=== PATIENT | female | born 1950 | race Caucasian/White ===

== ENCOUNTER → 2023-10-14 | Outpatient (CLI) | payer MEDICARE, OTHER, SELFPAY ==
--- NOTE | 2023-10-14 07:24 | CT_ITS ---
CT LEFT LOWER EXTREMITY WITH 3-D IMAGING CLINICAL INDICATION: PRE OP TECHNIQUE: Axial CT images of the left lower extremity (including left hip, left knee, and left ankle) was performed without IV contrast material. Coronal and sagittal reformats were provided. RADIATION DOSAGE (If Supplied By Facility): CTDIvol = ( 27.02 ) mGy, DLP = ( 1716.10 ) mGycm COMPARISON: No relevant prior comparison study available. FINDINGS: Bones: Normal left hip. There is severe degenerative arthrosis of the left knee joint with severe joint space narrowing, marginal osteophyte formation, subchondral sclerosis/cyst formation, and small foci of intra-articular gas. There is mild to moderate degenerative arthrosis of the patellofemoral and lateral femorotibial compartments of the left knee with marginal osteophyte formation. There is a plantar calcaneal spur. Otherwise normal left ankle. Osseous structures are intact without evidence of fracture or dislocation. No lytic or blastic osseous masses. Soft Tissues: There is a moderate left knee joint effusion. The deep soft tissue structures are unremarkable. The superficial soft tissues are unremarkable without evidence of edema, hematoma, or foreign body. CT/Extremity Lower without Contra IMPRESSION: Tricompartment degenerative arthrosis of the left knee, most severe in the medial femorotibial compartment. Moderate left knee joint effusion. Electronically Signed: Esequiel Lewis MD at 10:05 EDT ,
[2023-10-14 09:30] LABS: AST(SGOT) 30 U/L (15-37); Alanine Aminotransfer ALT/SGPT 27 U/L (13-56); Albumin, Serum 3.7 g/dL (3.2-5.0); Alkaline Phosphatase 115 U/L (45-117); Anion Gap 5 (5-15); BUN 21 mg/dL (7-18); BUN/Creat Ratio 19.6 RATIO (10-20); Calcium,Total 9.5 mg/dL (8.5-10.1); Chloride 108 mmol/L (98-107); Cholesterol 162 mg/dL (200); Creatinine, Serum 1.07 mg/dL (0.55-1.02); EST Glomerular Filtration Rate 54 mL/min (>60); Est Glom Filt Rate - Afr Amer 65 mL/min (>60); Globulin 3.7 g/dL (2.2-4.2); Glucose 99 mg/dL (74-106); High Density Lipoprotein 61 mg/dL; Protein, Total 7.4 g/dL (6.4-8.2); Sodium Level 140 mmol/L (136-145); Triglycerides 94 mg/dL; Very Low Density Lipoprotein 19 mg/dL (5-40)
== END | disposition home or self-care (01) ==
PROVIDERS: PCP Family Medicine; Referring Provider Specialist; Visit Provider Specialist
DX: M17.12 Unilateral primary osteoarthritis, left knee (principal); I10 Essential (primary) hypertension; E78.2 Mixed hyperlipidemia; I25.10 Atherosclerotic heart disease of native coronary artery without angina pectoris; M25.562 Pain in left knee
CPT/HCPCS: 36415; 73700; 80053; 80061

== ENCOUNTER 2023-11-10 07:06 | Observation (INO) | payer MEDICARE, OTHER, SELFPAY ==
--- NOTE | 2023-10-14 07:24 | EKG12_ITS ---
Test Reason : PRE-OP Blood Pressure : / mmHG Vent. Rate : 062 BPM Atrial Rate : 062 BPM P-R Int : 176 ms QRS Dur : 088 ms QT Int : 420 ms P-R-T Axes : 053 009 017 degrees QTc Int : 426 ms Normal sinus rhythm Normal ECG Confirmed by HUMAIRA JACK, KUSUM ([id number]), sports editor JOSE PALMA ([id number]) on 10/15/2023 6:40:41 AM Referred By: Dajuan Garcia Confirmed By:KUSUM GERARDO MD
[2023-10-14 08:33] LABS: Absolute Lymphocyte Count 1.76 X10^3/uL (0.83-4.51); Absolute Neutrophil Count 3.3 X10^3/uL (2.0-7.7); Basophil# 0.06 X10^3/uL; Basophil% 1.1 % (0-1); Eosinophil# 0.15 X10^3/uL; Eosinophils% 2.6 % (0-5); Hematocrit 40.6 % (37-47); Hemoglobin 13.2 g/dL (12.0-15.0); Lymphocyte # 1.76 X10^3/ul (0.83-4.51); Lymphocyte % 30.9 % (19-41); Mean Corp Hgb Conc 32.5 g/dL (32-36); Mean Corpuscular Hgb 29.1 pg (27.0-32.0); Mean Corpuscular Volume 89.6 fL (81-99); Mean Platelet Vol. 11.8 fl (6.2-12.0); Monocyte# 0.44 X10^3/uL; Monocyte% 7.7 % (0-10); NRBC Flagged by Analyzer 0 % (0-5); Neutrophil # 3.25 X10^3/uL (2.7-7.7); Neutrophil % 57.2 % (47-70); Platelet Count 160 K/mm3 (150-450); RBC Distribution Width CV 13.5 % (11.6-14.6); RBC Distribution Width SD 44.5 fl (35.1-43.9); Red Blood Count 4.53 M/mm3 (4.2-5.4); White Blood Count 5.7 K/mm3 (4.4-11.0)
[2023-10-14 09:20] LABS: Albumin, Serum 3.7 g/dL (3.2-5.0)
[2023-10-14 09:24] LABS: Magnesium 2.1 mg/dL (1.6-2.6)
--- NOTE | 2023-11-03 12:48 | PCM.HP.BLA ---
History and Physical History and Physical Patient Name: Ulysses Willis : 1950From:? YENNI DELVALLE PA-C DATE OF PRE-OPERATIVE EXAM: 11/03/2023 DATE OF SURGERY:? 11/10/2023 SCHEDULED PROCEDURE:? Robotic-assisted left total knee arthroplasty and right knee corticosteroid injection HISTORY OF PRESENT ILLNESS: Preoperative history and physical exam was performed on November 03, 2023.? This is a 73-year-old female who is had ongoing pain for 2 years.? She is also complaining of right knee pain.? The pain has been progressively been getting worse.? Patient's pain has been intermittent, dull, aching and sore.? Pain is increased with going up and down stairs and walking.? Patient states the pain does not awaken her at night.? Pain is located over the anterior knee.? She has had intermittent swelling.? Her pain can reach 6/10 with activities.? Patient does have start up pain.? She does feel the knee pain is significantly affecting her activities of daily living.? She has attempted conservative measures including rest, elevation, ice, heat with minimal improvement.? She has tried previous corticosteroid injection and aquatic therapy.? She states those treatments were temporarily helpful.? She has tried oral medications including Tylenol.? She has been through physical therapy and home exercises.? She denies past history of surgery on her left knee.? She is also complaining of continued right knee pain.? She has obtain surgical clearance from the primary care provider Dr. Hernandez.? She has medical history pertinent for hypertension, coronary artery disease, gastroesophageal reflux disease, and hyperlipidemia.? She does not have documented chronic kidney disease but preoperative lab work did reveal elevated kidney function and decreased GFR.? She has been on meloxicam for approximately 2 years.? She denies any recent chest pain, shortness of breath, fevers chills or recent infections.? No past history of DVT or pulmonary embolism.? After failing conservative measures and discussing all treatment options was Dr. Dajuan Garcia, the patient does wish to proceed with a left total knee arthroplasty and right knee corticosteroid injection. REVIEW OF SYSTEMS: Review Of Systems: Constitutional: Denies change in appetite, fever and weight change. Cardiovasular: Denies chest pain, heart murmur and irregular heartbeat. Respiratory: Denies cough, pneumonia, shortness of breath, tuberculosis and wheezing. Gastrointestinal: Denies constipation, diarrhea, heartburn, nausea, rectal itching, bloody stools and vomiting. Musculoskeletal: Denies leg swelling, pain, trouble walking and weakness. Skin: Denies Raynaud's, history of shingles and tattoo. Neurological: Denies ambulatory dysfunction, dizziness, numbness/tingling and tremor. Psychiatric: Denies anxiety, insomnia and stress. Hematologic/Lymphatic: Denies anemia, bleeding/bruising tendency and past transfusion. Reviewed, no changes. PAST MEDICAL HISTORY: Advance Care Plan: Other Directive, POA Effective Date: 11/27/2021 Other Directive, LIVING WILL Effective Date: 11/27/2021 Past Medical History: Medical Problems: Acid Reflux, High Blood Pressure, Hypercholesterolemia, Coronary Artery Disease (CAD), elevated kidney function Accidents: None Surgical Hx: Tonsillectomy - 1956 / [place] Anesthesia Complications: None Assistive Devices: Glasses Reviewed and updated. SOCIAL HISTORY: Social History: Marital: .Occupation: Retired.Work Status: Retired.Hand Dominance: Right-handed. Personal Habits:? Cigarette Use: Never Smoked Cigarettes.Smokeless Tobacco: Never Used Smokeless Tobacco.E-Cigarette Use: Never used.Alcohol: Occasionally.Drug Use: Denies Use.Enjoy Exercising: Never Exercises. Reviewed, no changes. VITALS: Ht: 67.25 Wt: 224lb Wt k.606 BMI: 34.8 BP: 120/64 Pulse: 54 T: 97.6 T: 36.4C Pain Level: 6 O2SatR: 97 ALLERGIES: No Known Drug Allergy MEDICATIONS: Meloxicam 15 mg 1 by mouth every day, Aspirin Adult Low Dose 81 mg by mouth 1 a day, Hydrochlorothiazide 12.5 mg 1 by mouth every day, Crestor 10 mg 1x/day, Calcium + D 500-1000-40 MG-Unt-mcg 2 by mouth every day, Glucosamine & Chondroiti N/Vitamin D Maximum Strength 2691-0426-371 MG-MG-Unit, Prilosec OTC 20 mg PRE-OP EXAM: General appearance:NORMAL? Other: Eyes: Conjunctivae and lids: NORMAL? Pupils: ERR Ears, Nose, Mouth, and Throat: NORMAL? Other: Inspection of lips, teeth and gums: NORMAL?? Other: Neck: Examination of neck: no masses noted. Respiratory: Assessment of respiratory effort: NORMAL?? Other: ? Auscultation of lungs: clear to auscultation no wheezes, rhonchi or rales. Cardiovascular:? Auscultation of heart: regular rate and rhythm, no murmurs, gallops or rubs. PHYSICAL EXAMINATION: On clinical exam patient does walk with an antalgic gait.? The left knee has moderate effusion.? No erythema.? She has varus alignment which is partially correctable.? Range of motion: Lacks 10 full extension to 110 flexion.? Stable to varus/valgus stress test, stable to anterior/posterior drawer exam.? Patient's right knee has mild effusion with tenderness to palpation along the medial joint line.? There is varus alignment which is correctable on exam.? Range of motion 0 extension 120 flexion.? Stable to varus/valgus stress test, stable to anterior/posterior drawer exam. IMAGING STUDIES: Previous x-rays of left knee reveal varus alignment with medial joint space narrowing, subchondral sclerosis, osteophyte formation consistent with severe stage IV bone on bone erosive tricompartment osteoarthritis.? Patient's right knee reveals varus alignment with medial joint space narrowing, subchondral sclerosis, osteophyte formation consistent with moderate to severe stage III Dimitris for right knee osteoarthritis with bony erosion in the patellofemoral compartment. IMPRESSION: 1.? Severe left knee osteoarthritis 2.? Moderate to severe right knee osteoarthritis 3.? Hypertension 4.? Coronary artery disease 5.? Gastroesophageal reflux disease 6.? Hyperlipidemia 7.? Elevated kidney function and decreased GFR without diagnosis of chronic kidney disease 8.? Obesity with BMI 34.8 PLAN: Dr. Dajuan Garcia did discuss and review with the patient all treatment options including surgical versus nonsurgical options.? Patient does wish to proceed with the above-stated procedure.? Potential risks, benefits, and complications of the procedure were discussed in detail including but not limited to , infection, nerve and blood vessel damage, persistent pain, numbness, tingling, paresthesias, blood clot, pulmonary embolism, and requirement for possible further surgery.? The patient expressed full understanding and has no further questions for the doctor.? Patient does agree to proceed with the above-stated procedure and has signed the surgery consent form. POST-OP MEDICATION PLAN: Pain Medications: Postoperative pain regimen will be initiated by Dr. Dajuan Garcia in the hospital.? Due to the elevated kidney function and decreased GFR we are going to avoid nonsteroidal anti-inflammatories.? Patient has had appropriate lab work and clearance.? We are reaching out to the primary care provider with regards to her kidney function.? She does have a walker that she will bring to the hospital. DVT Prophylaxis:? Aspirin 81 mg twice daily for 4 weeks postoperatively.? Denies past history of DVT or pulmonary embolism This dictation was created using voice recognition software. Phonetic and/or grammatical errors may exist. ___? I have re-examined the patient.? There are no clinical changes since date of exam. ___? See progress notes for changes. ___? Dictated on admission Date: ? Time: Signature:
[2023-11-10] VITALS (13 sets, daily range): BP systolic 94–146; BP diastolic 58–95; PULSE 73–88; RESP 16–18; TEMP 36.4–36.8; O2SAT 95–100; BMI 34.7
[2023-11-10] MEDS: Acetaminophen 500 MG Tablet 1000 MG PO ×2 (07:30→22:25)
[2023-11-10] MEDS: JPS (Morphine 10mg/ml) OPERA.SITE (07:30)
[2023-11-10] MEDS: Magnesium 1 GM over 15 mins IV (07:30)
[2023-11-10] MEDS: Lactated Ringers 1,000 ML 999 ML IV ×2 (07:30→12:09)
[2023-11-10] MEDS: Gabapentin 600 MG Tablet PO (07:31)
--- NOTE | 2023-11-10 09:15 | KNEE_PTH ---
PATIENT: BRITTNEY SIMONS LOC: MS3 U#:[id number] AGE/SX: 73/F ROOM: [facility] [place] RE11/10/[address]: Dr. Dajuan Garcia MD : 1950 BED: 1 DIS: 11/11/2023 SPEC #: [id number] RECD: 11/10/23 12:38 STATUS: CATALINA BLAIR #: [id number] AYANA: 11/10/23 09:[address]: Dajuan Garcia DEPT: SURGICAL PATHOLOGY RECD BY: Francisco Agudelo ENTERED: 11/10/23 12:54 SP TYPE: TOTAL KNEE OTHR DR: Dr. Payam Hernandez MD Tissues: Knee, NOS Procedures: Decalcification bone/plaque Surgery Specimen Level IV HEADER OPERATION: ERAS, left total knee replacement robotic arm assist PRE-OP DIAGNOSIS: Severe left knee osteoarthritis, moderate to severe right knee osteoarthritis, hypertension, elevated kidney function and decreased GFR TISSUE SUBMITTED: Left knee bone and tissue MICROSCOPIC DIAGNOSIS Bone and soft tissue, left knee, total knee replacement/resection: Pieces of bone with degenerative osteoarthritic changes. Fibroadipose tissue, fibroconnective tissue and reactive synovial tissue. SULMA: 11/15/2023 MICROSCOPIC DESCRIPTION Slides are reviewed. GROSS DESCRIPTION Received is one container designated bone and soft tissue left knee. The specimen consists of multiple fragments of valenzuela-yellow bone measuring in aggregate 12.0 x 10.0 x 4.0 cm. Also in the specimen container are multiple fragments of yellow-white soft tissue attached to the pieces of bone measuring in aggregate 4.0 x 3.5 x 1.0 cm. A number of bony fragments contain articular surfaces consistent with tibial plateau and femoral condyle and displaying prominent osteophyte formation, eburnation and bone erosion. Family Practice Doctor sections are submitted in two cassettes as follows: 1 - soft tissue, 2 - bone after decalcification. / SULMA/ 11/10/23 TC:5 CPT: 14232, 12245
[2023-11-10 09:31] LABS: Bedside Glucose 79 mg/dL (74-106)
[2023-11-10] MEDS: Cefazolin 2 GM in 0.9% Normal Saline (100mL Bag) 100 ML IV (09:49)
[2023-11-10] MEDS: TXA 1000mg in NS100 100ml (IVPB at Closure) 660 MG IV (10:01)
[2023-11-10] MEDS: Triamcinolone Acetonide 40 MG/ML Vial (10:27)
[2023-11-10] MEDS: Bupivacaine 0.5% PF 10 ML VIAL (10:28)
[2023-11-10] MEDS: TXA 1000mg in NS100 100ml (IVPB at Incision) 660 MG IV (10:53)
--- NOTE | 2023-11-10 11:02 | PCM.OPRPT ---
Report of Operation Date of Procedure: 11/10/23 Pre-Operative Diagnosis: Bilateral knee primary osteoarthritis Post-Operative Diagnosis: Bilateral knee primary osteoarthritis Surgery/Procedure Performed:: Left knee minimally invasive robotic assisted total knee replacement Right knee corticosteroid injection intra-articular Description of Surgical Findings:: Stable knee with good patella tracking Surgeon: Dajuan Garcia feed project engineer: Torrey Pennington Type of Anesthesia: Spinal Anesthesiologist: Bandar Reyes Special Medications: 2 g Ancef, 1 g TXA at incision, 1 g TXA closure, 10 mg Decadron, joint cocktail (5 mg Duramorph, 30 mL of 0.5% Ropivicaine, 1000 units of epinephrine, 30 mg of Toradol) Specimen's removed: Bony cuts Estimated Blood Loss (mL): 75 Fluids Replaced: 1400 mL crystalloid Description of Procedure: Implants used: 1. Meghna size 5 triathlon cruciate retaining distal femoral press-fit component 2. [place] size 5 press-fit tritanium tibial baseplate 3. Meghna X3 11 mm polyethylene 4. Meghna X3 35 and asymmetric patella Brief history operative indications: 73-year-old female with history of bilateral knee osteoarthritis with radiographic findings with loss of joint space, osteophyte formation and subchondral sclerosis. Failed conservative measures as mentioned in the H&P. Discussion of total knee arthroplasty as well as risk and benefits were discussed the patient including but not limited to blood loss, DVTs, PEs, neurovascular damage, general risk of anesthesia including loss of life, and stiffness or instability were discussed with patient. Patient demonstrated understanding and was able to sign informed consent. Additionally, we elected to proceed with a corticosteroid injection in the right knee Procedure: On the date of procedure patient's left lower extremity was marked in the preoperative area for total joint replacement. The right knee was marked for injection. The patient was then taken back to the operating room where the patient was placed on the table in the supine position. All bony prominences were identified a well-padded. Anesthesia assumed control of the C-spine and airway and remained controlled throughout the remainder of the procedure. At this time our attention was directed to the right knee where the suprapatellar lateral portal was palpated. For alcohol swabs were used to clean the skin. 25-gauge needle was then used to inject 2 cc of Kenalog and 4 cc of 0.5% plain Marcaine. Patient tolerated the procedure well and Band-Aid was placed after needle was withdrawn. A tourniquet was placed on the left upper thigh and the leg was prepped in a sterile fashion. The surgeon then scrubbed at this time .Upon reentering the room left lower extremity was draped in a standard orthopedic fashion. A timeout was then called and everyone agreed upon the side, the site, the procedure to be performed, patient's identity and antibiotics given. Esmarch bandage was used to exsanguinate the extremity and the tourniquet was placed up to 250 mmHg with the knee in flexion. A midline skin incision was made and sharp dissection was taken down through skin subcutaneous tissue and fat. The standard medial parapatellar incision was made and the patella was subluxed laterally. An Appropriate deep MCL release was done and the fat pad was resected. Our attention was then directed to the patella. The patella was everted and a flat resection was made. The knee was then flexed up in 2 femoral pins were placed inside the incision and 2 tibial pins were placed outside the incision in the medial tibia bicortically. Once this was completed the 2 checkpoints in the femur and tibia were placed. Knee was then flexed up and the bony landmarks were registered. Once this was completed knee was taken through range of motion and manually stressed allowing us to a plan for an appropriate tibial cut. The robotic arm was brought into the field sterilely and checkpoint and saw were registered. Based on the patient's deformity the tibial cut was made []. At this time the tensioner was then placed in the joint and ligament tension was checked at 90 degrees and full extension. Based on the patient's ligamentous tension appropriate adjustments were made to the operative plan and ligament releases were done. Once we were happy with our operative plan with balanced flexion and extension gaps our attention was directed to the femur. The robot was brought into the field sterilely and registered. Posterior condylar cuts, anterior chamfer cuts and anterior cuts were appropriately made for a size [] femur. When these were completed the saws were switched out in the distal femoral and posterior chamfer cuts were made. Protecting the soft tissue throughout this time. A size [] tibial base plate was selected. the knee was flexed to 90 degrees and the soft tissues and posterior osteophytes were removed from the joint. 40 cc of the periarticular injection was injected into the posterior medial corner of the joint. The appropriate trials were then placed on the femur and tibia. A trial polyethylene was trialed to ensure proper balancing and stability of the knee. The appropriate tibial internal rotation was then marked with a bovie. Our attention was then directed to the patella. The lug holes were drilled and the patella trial was placed. Patellar tracking was checked and deemed appropriate. Once we were happy lug holes were drilled for the femur and trial components were removed. the tibia was subluxed and pinned into place and the keel was punched and drilled appropriately. Final components were verified and opened, and cement was mixed in a vacuum. [employer] Simplex cement was used. The wound was copiously irrigated with normal saline. When the cement was ready the components were [] into place starting with the tibia, femur and finally cementing the patella. The trial poly component was placed and the knee was placed in full extension. All excess cement was removed in the process. Once the cement had cured the tracking, alignment and balance were verified and a size [] polyethylene component was placed. Once the final components were placed a 3-minute dilute Betadine lavage was performed followed by an Irrisept lavage was performed and the wound was copiously irrigated with normal saline solution and the periarticular injection was given. The wound was closed in a layer enciso fashion using #1 vicryl interrupted sutures for the arthrotomy, 2-0 interrupted Vicryl suture for the subcuticular layer and daya for final skin closure. A sterile compressive dressing was then placed. The patient was then awakened from anesthesia, transferred to the [facility] and transferred to the PACU for recovery. Post op plan DVT ppx: ASA 81mg BID, thigh high compression stockings Follow up: in office in 2 weeks for wound check PT: to start POD #0 at hospital, outpatient PT should be arranged. My physician ophthalmic surgical assistant was a vital part of this case. He was important in appropriate retraction during the case, and protection of soft tissues during bony cuts. His intimate knowledge of the case and my steps aided in safe and expedient completion of the procedure as well as appropriate position of the leg during the case. He was also vital in assisting with closure under my direct supervision. Due to the complexity of this case robotic arm was used to assist in the surgery to improve accuracy and clinical outcomes. Complications No intraoperative complications Admit VTE Documentation VTE Present on Admission: No VTE Mechan Device Prophylaxis: SCD's and Thigh High CAM Kimble VTE Pharm Prophylaxis ordered?: Yes
--- NOTE | 2023-11-10 11:55 | RAD_ITS ---
STUDY: X-RAY - LEFT KNEE REASON FOR EXAM: Female, 73 years old. post op -- AP and Lateral xray of operative knee in PACU TECHNIQUE: 2 view(s) of the knee. COMPARISON: None. FINDINGS: Normal visualized distal femur. Normal visualized proximal tibia and fibula. Normal proximal tibiofibular articulation. Patient is status post total knee replacement. There is good alignment. Postoperative soft tissue changes. RAD/Knee 1 or 2 Views IMPRESSION: Status post total knee replacement. There is good alignment. Postoperative soft tissue changes. Electronically Signed: Tl Ford MD at 13:02 EDT ,
--- NOTE | 2023-11-10 16:24 | CON.PCM.HO_ITS ---
Assessment & Plan Assessment/Plan (1) Arthritis of left knee: PLAN: Plan #Left knee osteoarthritis * s/p left knee minimally invasive robotic assisted total knee replacement. * today is POD 0 * management as per primary service orthopedics. * PO tylenol, PO oxycodone and IV morphine prn for pain * fall precautions * incentive spirometry * #Hypertension: on HCTZ. IV hydralazine prn. #GERD: on PPI #Hyperlipidemia: on statin #Obesity: BMI is 34.8. Complicates acute care, expected recovery and prognosis. DVT prophylaxis; aspirin 81mg bid per primary service orthopedics. Thank you for the courtesy of the consult. The hospitalist service will continue to follow with you. HPI Consult Data Date of Consult: 11/10/23 HPI Narrative Reason for Consultation: medical management HPI Narrative: BRITTNEY SIMONS, is a 73 F with a PMH as outlined who was admitted to the service of orthopedics for right knee pain which had failed conservative management. She was therefore admited for robotic assisted left total knee arthroplasty and right knee corticosteroid injection. Hospitalist service was consulted for medical management. Patient seen and examined. Pain was well controlled. Review of systems was otherwise negative. She has remained hemodynamically stable. [facility] Medical History (Updated 11/10/23 @ 16:[address] Leonor Rush MD) Wears contact lenses Post-menopausal Alcohol use Arthritis High cholesterol Gastric reflux Non-smoker Shortness of breath on exertion Leg cramps History of pain when walking History of edema Hypertension Home Medications ?Medication ?Instructions ?Recorded ?Last Taken ?Type acetaminophen 650 mg 1,300 mg PO Q12H PRN PRN pain 10/11/23 Unknown History tablet,extended release (Tylenol Arthritis Pain) diphenhydramine 25 1 tab PO QHS PRN pain 10/11/23 Unknown History mg-acetaminophen 500 mg tablet (Acetaminophen PM) hydrochlorothiazide 12.5 mg tablet 12.5 mg PO DAILY 10/11/23 Unknown History meloxicam 15 mg tablet 15 mg PO DAILY 10/11/23 Unknown History omeprazole 20 mg capsule,delayed 20 mg PO DAILY 10/11/23 11/10/23 History release rosuvastatin 10 mg tablet 10 mg PO DAILY 10/11/23 Unknown History Allergy/AdvReac Type Severity Reaction Status Date / Time No Known Allergies Allergy Verified 11/10/23 07:08 Surgical History (Updated 10/11/23 @ 09:13 by Jackie Freire) Hx of tonsillectomy Hx of colonoscopy Social History Smoking Status: Never smoker ROS Constitutional Constitutional: Denies anorexia, chills, fatigue, fever(s), malaise or weakness Eyes Eyes: Denies change in vision ENT HEENT: Denies dysphagia or headache(s) Cardiovascular Cardiovascular: Denies chest pain, dyspnea on exertion, edema, lightheadedness, orthopnea, palpitations, paroxysmal nocturnal dyspnea or rapid heart rate Respiratory/Chest Respiratory/Chest: Denies cough, dyspnea, shortness of breath at rest or shortness of breath with exertion Gastrointestinal Gastrointestinal: Denies abdominal pain, constipation, diarrhea, nausea or vomiting Genitourinary Genitourinary: Denies difficulty urinating or dysuria Musculoskeletal Musculoskeletal: Reports joint pain Neurologic Neurologic: Denies confusion, dizziness, focal weakness, headache(s) or numbness Psychiatric Psychiatric: Denies anxiety or depression Endocrine Endocrinology: Denies change in body appearance Hematologic/Lymphatic Hematologic/Lymphatic: Denies anemia Physical Exam Const alert, oriented x3 and no apparent distress General Appearance: cooperative HEENT normocephalic, head/scalp atraumatic, hearing grossly normal bilaterally, moist oral mucous membranes and oropharynx normal Mouth: oral and palatal mucosa normal and dry mucous membranes Eyes PERRL, EOMs intact bilaterally and conjunctivae normal Neck no lymphadenopathy and supple Resp normal respiratory effort, no retractions, no use of accessory muscles and clear to auscultation bilaterally Cardio regular rate, regular rhythm, S1 normal heart sound, S2 normal heart sound, no murmurs and no rub GI normal to inspection, nondistended, normoactive bowel sounds, soft to palpation, non-tender and non-distended Extremity Extremity Narrative: intact dressing over left knee Neuro oriented x3, CN's II-XII intact bilaterally and no focal motor deficits Sensorium / Orientation: awake and alert Psych affect normal Lab / Micro Data 10/14/23 08:13 10/14/23 08:13 Labs: Laboratory Results - last 24 hr 11/10/23 07:16: POC Glucose 79 Imaging Radiology Impression Knee X-Ray 11/10/23 11:55 IMPRESSION: Status post total knee replacement. There is good alignment. Postoperative soft tissue changes. Electronically Signed: Tl Ford MD at 13:02 EDT , Charges/Coding Visit Charges Inpatient E&M: 98739 Subs Hosp L2
[2023-11-10] MEDS: Aspirin 81 MG TAB.CHEW PO (16:27)
[2023-11-10] MEDS: Ketorolac 15 MG/ML Vial IV (16:27)
[2023-11-10] MEDS: Cefazolin 1 GM/50 ML BAG IV (17:28)
[2023-11-10] MEDS: oxyCODONE 5 MG Tablet PO (22:25)
[2023-11-10] MEDS: Senna/Docusate Sodium 1 Tablet 2 TABLET PO (22:26)
[2023-11-10] MEDS: Atorvastatin Calcium 20 MG Tablet PO (22:26)
[2023-11-11 02:15] VITALS: BP 127/75; PULSE 78; RESP 18; TEMP 36.6; O2SAT 94
[2023-11-11] MEDS: Cefazolin 1 GM/50 ML BAG IV (02:22)
[2023-11-11] MEDS: oxyCODONE 5 MG Tablet PO ×3 (02:25→10:50)
[2023-11-11 06:03] VITALS: BP 140/76; PULSE 83; RESP 18; TEMP 36.4; O2SAT 96
[2023-11-11] MEDS: Acetaminophen 500 MG Tablet 1000 MG PO (06:06)
[2023-11-11 07:11] LABS: Hematocrit 33.5 % (37-47); Hemoglobin 11.2 g/dL (12.0-15.0); Mean Corp Hgb Conc 33.4 g/dL (32-36); Mean Corpuscular Hgb 30.1 pg (27.0-32.0); Mean Corpuscular Volume 90.1 fL (81-99); Mean Platelet Vol. 12.6 fl (6.2-12.0); Platelet Count 137 K/mm3 (150-450); RBC Distribution Width CV 13.4 % (11.6-14.6); RBC Distribution Width SD 43.9 fl (35.1-43.9); Red Blood Count 3.72 M/mm3 (4.2-5.4); White Blood Count 12.5 K/mm3 (4.4-11.0)
[2023-11-11 08:09] LABS: Anion Gap 8 (5-15); BUN 17 mg/dL (7-18); BUN/Creat Ratio 17.5 RATIO (10-20); Calcium,Total 9.1 mg/dL (8.5-10.1); Chloride 108 mmol/L (98-107); Creatinine, Serum 0.97 mg/dL (0.55-1.02); EST Glomerular Filtration Rate 60 mL/min (>60); Est Glom Filt Rate - Afr Amer 73 mL/min (>60); Estimated Creatinine Clearance 64.86 ml/min; Glucose 118 mg/dL (74-106); Sodium Level 141 mmol/L (136-145)
[2023-11-11 08:27] VITALS: BP 133/91; PULSE 73; RESP 16; TEMP 36.9; O2SAT 98
[2023-11-11] MEDS: Pantoprazole Sodium 20 MG Tablet PO (08:34)
[2023-11-11] MEDS: hydroCHLOROthiazide 12.5mg 12.5 MG PO (08:34)
[2023-11-11] MEDS: Senna/Docusate Sodium 1 Tablet 2 TABLET PO (08:35)
[2023-11-11] MEDS: Aspirin 81 MG TAB.CHEW PO (08:35)
[2023-11-11] MEDS: Famotidine 20 MG Tablet PO (08:35)
[2023-11-11] MEDS: Ensure Surgery 237 ML LIQUID PO (08:44)
--- NOTE | 2023-11-11 09:41 | PN.ORTHO_ITS ---
Subjective Subjective The patient was sitting in bedside chair upon examination. Patient denies any chest pain, shortness of breath, dizziness, lightheadedness, nausea or vomiting, or calf pain. Pain is controlled on medications. No adverse overnight events. Patient overall is doing well today. She has been up walking with therapy and already worked on steps. Her pain has been adequately controlled and does feel the block is still working. She has used oxycodone already. Plan is for patient to go home with outpatient physical therapy. She does want to try to go home today. Objective Data Objective Data Vital Signs: Vital Signs Temp Pulse Resp BP Pulse Ox O2 Del Method O2 Flow Rate 98.4 F 73 16 133/91 H 98 Room Air 4 11/11/23 08:27 11/11/23 08:27 11/11/23 08:27 11/11/23 08:27 11/11/23 08:27 11/11/23 08:27 11/10/23 12:43 Oxygen Flow Rate (L/min) 4 Oxygen Delivery Method Room Air Weight: 100.698 kg Body Mass Index (BMI) 34.7 Intake & Output: Intake and Output for Last 24 Hours 11/09/23 11/10/23 11/11/23 23:59 23:59 23:59 Intake Total 3932 / 3932 650 / 650 Output Total 450 / 450 700 / 700 Balance 3482 / 3482 -50 / -50 Lab / Micro Data 11/11/23 06:01 11/11/23 06:01 Labs: Laboratory Results - last 24 hr 11/11/23 06:01: WBC 12.5 H, RBC 3.72 L, Hgb 11.2 L, Hct 33.5 L, MCV 90.1, MCH 30.1, MCHC 33.4, RDW Std Deviation 43.9, RDW Coeff of Jolanta 13.4, Plt Count 137 L, MPV 12.6 H, Sodium 141, Potassium 4.0, Chloride 108 H, Carbon Dioxide 25.0, Anion Gap 8, BUN 17, Creatinine 0.97, Estim Creat Clear Calc 64.86, Est GFR (MDRD) Af Amer 73, Est GFR (MDRD) Non-Af 60, BUN/Creatinine Ratio 17.5, Glucose 118 H, Calcium 9.1 Micro: Microbiology 10/14/23 08:13 Swab (Method) Nasal Screen MRSA/MSSA - Final Radiography Diagnostic Testing: Radiology Impression Knee X-Ray 11/10/23 11:55 IMPRESSION: Status post total knee replacement. There is good alignment. Postoperative soft tissue changes. Electronically Signed: Tl Ford MD at 13:02 EDT , Physical Exam Narrative Vital signs stable and afebrile. SCDs and CAM hose are in place bilaterally Patient is able to plantarflex and dorsiflex actively. Sensation is intact to light touch to saphenous, sural, superficial and deep peroneal, and tibial distribution. Dressings are clean dry and intact. Negative Homans bilaterally, negative signs and symptoms of DVT. Const alert, oriented x3 and no apparent distress Assessment & Plan Assessment/Plan (1) Status post total left knee replacement: PLAN: 1. S/P robotic assisted left total knee arthroplasty POD #1 2. Continue Pain Medications: Tylenol, meloxicam, oxycodone. Preoperatively patient did have some slightly elevated kidney function with BUN and creatinine as well as decreased GFR. We did reach out the patient's primary care provider and they did review patient's labs and they are okay with her continuing with her nonsteroidal anti-inflammatory. Postoperatively her kidney function and GFR improved. I did advise patient to continue to follow-up with her primary care physician with regards to the kidney function and future lab work. I would defer to primary care provider for continued use of nonsteroidal anti- inflammatories. She voiced understanding agreement with treatment plan. 3. DVT Prophylaxis: Take 81 mg aspirin twice daily for 4 weeks postoperatively for DVT prophylaxis. Patient denies past history of DVT or pulmonary embolism. 4. PT/OT: Weightbearing as tolerated with walker 5. H & H: 11.2/33.5, asymptomatic. Labs have been reviewed and no need for further treatment 6. Reactive leukocytosis: 12.5, Afebrile. No clinical signs of infection. 7. Continue postoperative medical management per medicine 8. Encouraged Incentive Spirometry 9. Patient is aware of postoperative constipation that can occur from 1-3 days postoperatively. Will continue with senna 2 tablets twice daily until first bowel movement. Patient was advised if not having a bowel movement after day 3 she is to contact orthopedics so appropriate change can be made. Patient voiced understanding. 10. Disposition: Plan will be for discharge home today as patient tolerated physical therapy very well this morning, pain is adequately controlled, and medically stable. Patient would like her prescriptions E scribed to [facility]. She does have outpatient physical therapy established. She will follow-up per postoperative instructions. Patient was instructed to contact her office upon discharge with any concerns or questions. I have reviewed the [place] Automated Rx Reporting System (OARRS) report for this patient for refill pattern and other prescriber involvement as part of the appropriate surveillance for the provision of acute and chronic controlled medications. The report was requested and reviewed on the date of this entry and was considered in the prescribing process. This dictation was created using voice recognition software. Phonetic and/or grammatical errors may exist.
--- NOTE | 2023-11-11 09:47 | PCM.DC ---
Discharge Instructions Diet Discharge Diet: No restrictions Activity Discharge Activity: May Not Drive (No driving until you can walk 100 feet with use of a cane and no longer taking narcotics) May shower in (days): 1 (Please turn dressing away from water. Okay to get wet as long as dressing is intact to skin.) Ice area for (Minutes): 20 (Every 1-2 hours while awake. Please place barrier between the skin and ice pack.) Weight Bearing Status: Weight bearing as tolerated Keep extremity elevated above heart level: Operative Extremity Dressing / Incision Call your doctor if your incision/area has: Continuous Slow Oozing, Sudden Increased Bleeding, Increased Pain/ Swelling, Increased Redness and Foul Smelling Discharge Call your doctor if you observe: Fever of 101 or Higher, Coldness, Increased Pain, Numbness or Tingling, Change in Color, Shortness of breath, Chest pain, Calf discomfort and Uncontrolled pain Remove Dressing in: 4 days (Okay to remove dressing on November 16, 2023) Additional Dressing/Incision Instructions:: Follow [facility] Post-op Instructions. Once postoperative dressing has been removed only use gentle soap and water over the incision. Do not use any ointments, Neosporin, salves, alcohol pads over the incision for 6 weeks postoperatively. Do not submerge underwater for 6 weeks postoperatively. Continue with CAM hose/elastic stockings for 2 weeks postoperatively. May remove at nighttime but needs to be placed back on the leg during the day. Do NOT use alcohol with narcotic pain medication. Do NOT make important decisions while taking narcotic medication. If you have problems with taking your medication (rash, itching, nausea, etc.) call the office at once. Follow Up Care Test Results: Test results from this visit will be discussed in further detail at your follow-up appointment, if applicable. Discharge Plan Admission Admit Date/Time: 11/10/23 07:06 Attending Provider: Dajuan Garcia Primary Care Provider: Payam Hernandez Consulting Providers: James Campos Discharge Orders/Prescriptions Prescriptions: New acetaminophen 500 mg Tablet 1,000 mg PO TID 14 Days Qty: 84 0RF Rx Instructions: Do not take more than 3000 mg Tylenol in a 24-hour period. aspirin 81 mg Tablet,Chewable 81 mg PO BIDCM 30 Days Qty: 60 0RF Rx Instructions: Take 81 mg aspirin twice daily for 4 weeks postoperatively for DVT prophylaxis. oxycodone 5 mg Tablet 5 - 10 mg PO Q4H PRN PRN (Reason: as needed for pain) 7 Days Qty: 42 0RF sennosides-docusate sodium [Stool Softener-Stimulant Laxat] 8.6-50 mg Tablet 2 tab PO BID 3 Days Qty: 12 0RF Rx Instructions: Take until first bowel movement, then as needed Continued rosuvastatin 10 mg tablet 10 mg PO DAILY hydrochlorothiazide 12.5 mg tablet 12.5 mg PO DAILY meloxicam 15 mg tablet 15 mg PO DAILY omeprazole 20 mg capsule,delayed release(DR/EC) 20 mg PO DAILY acetaminophen [Tylenol Arthritis Pain] 650 mg tablet extended release 1,300 mg PO Q12H PRN PRN (Reason: pain) Acetaminophen PM 25-500 mg tablet 1 tab PO QHS PRN (Reason: pain) Referrals / Follow Up: Physical,Therapy [Other] - 11/15/23 10:00 am Payam Hernandez MD [Primary Care Provider] - Torrey Pennington PA-C [Med Staff - [facility]] - 11/24/23 10:15 am Disposition Disposition (needs filled in before D/C Order can be placed): Home, Self Care
--- NOTE | 2023-11-11 10:55 | CASEMGMT ---
RN?CM?CLAIMS SERVICE REPRESENTATIVE?CM?to room to meet with patient for initial transition planning/care coordination?assessment.?RN?CM?introduced self and role at [facility].? Pt voices understanding and consents to?assessment?at this time.? Pt sitting up in chair in room in no distress at this time.? and daughter @ bedside and pt agreeable to them being present during assessment. Pt is A/O at this time and answers all questions appropriately.?? Care providers, pharmacy, and demographics verified/updated at this time. PCP: Dr Hernandez Specialists: Dr Garcia-jean Preferred Pharmacy: [facility] Retail Insurance: [facility], MMO Prescription Benefit:?yes Living Will/HPOA:?Has both LW and HCPOA, who is her , Jerrell. Documents not on-file @ [facility]. LUCAS PAREDES advised they can bring these in to be placed on file @ [facility]. LNOK: , Jerrell. Daughter. Living Arrangements: Lives w/ in split-level home w/3 steps to enter through one entrance, but can enter home through patio entrance where there are not steps, if needed. Pt was indep w/ADL's and IADL's prior to surgery. and dtr able to assist as needed. Transportation:?Pt, , dtr DME: ?States has the following DME:?polar care, shower chair, RTS, walker. Pt states is interested in TSR. Made aware [facility] does not cover for this item. Provided w/[employer] on-line store info and verbal list given of several other places this could be purchased. She voices appreciation. Pt and family state no need for further DME at this time.? HHC/SNF: No hx of either. Pt wishes to do OP therapy and has appt scheduled @ [facility] 11/14 @ 10 AM. Pt and family did bring up OP in [place] and inquired about this, stating it is closer to pt's home. Questions answered. LUCAS PAREDES offered to get script from ortho to go to [place] OP therapy, informing pt she can go to OP therapy of her choice. Pt declines at this time, stating she wishes to continue w/plan for OP therapy @ [facility] for now and if she changes her mind later she will discuss that w/Dr Garcia or Torrey/PA. Family available to transport pt to OP appts. Pt wishes to return home and states has no concerns with going home at time of discharge.??CM?to follow for any further discharge planning/needs.? Pt voices no further concerns/needs at this time.? Advised pt to ask for?CM?if any further questions/concerns/needs arise.? Voices understanding. PLAN:??[facility]Jacob LORENZN?RN?CM
--- NOTE | 2023-11-11 10:57 | CASEMGMT ---
Social Work Per RNCM, pt acknowledges that she has completed a Living will and Health Care POA naming her spouse Edis Willis. Pt made aware documents are not on file at [facility] and RNCM requested they be brought in for scanning into the EMR. SHELLEY Hough
--- NOTE | 2023-11-11 11:23 | CASEMGMT ---
Met with patient to complete JAVIER form. JAVIER form explained to patient who voiced understanding and signed form. Original form placed in pt?s chart and copy provided to patient. Rita Parker, Discharge Planning Asst
--- NOTE | 2023-11-11 12:09 | PHA.DC.MC.R ---
Pharmacy [facility] Pharm[facility] Service has performed discharge medication reconciliation and counseling for this patient. The patient's discharge medication list was reviewed for discrepancies and discrepancies were resolved. The patient was counseled on the following discharge medications and changes in medications for homegoing were reviewed. 1. TYLENOL 2. ASPIRIN 3. SENNA-S 4. OXYCODONE The Reason for Use, instructions for use, and potential side effects were reviewed for all new medications. The patient's questions regarding all of their medications were answered. The patient was able to verbally demonstrate an understanding of their discharge medications. The patient also has other PRN Tylenol products on her home medication list. She was counselled to not take any of these medication while taking scheduled Tylenol for post-op pain. The patient was counselled by Amira Cruz PharmD Candidate
== END 2023-11-11 12:58 | disposition home or self-care (01) ==
LOC: SDC 14:43 → MS3 14:43
PROVIDERS: Anesthesiology; Admitting Provider Specialist; PCP Family Medicine; Referring Provider Specialist; Visit Provider Specialist
PROC: 0SRD0JZ Replacement of Left Knee Joint with Synthetic Substitute, Open Approach (ICD-10-PCS; CPT 27447; principal; 2023-11-10 08:45)
DX: M17.0 Bilateral primary osteoarthritis of knee (principal); I10 Essential (primary) hypertension; E66.9 Obesity, unspecified; Z68.34 Body mass index [BMI] 34.0-34.9, adult; M21.161 Varus deformity, not elsewhere classified, right knee; K21.9 Gastro-esophageal reflux disease without esophagitis; I25.10 Atherosclerotic heart disease of native coronary artery without angina pectoris; E78.00 Pure hypercholesterolemia, unspecified; Z79.899 Other long term (current) drug therapy; R06.02 Shortness of breath
CPT/HCPCS: 27447; 01402; S2900; 64447; 36415; 73560; 80048; 82040; 82962; 83735; 85025; 85027; 87081; 88305; 88311; 93005; 94668; 96365; 96366; 96375; 97116; 97162; 97166; 97530; 99221; 99252; C1776; J7120; G0378; G0463; J2405; J3475